=== PATIENT | male | born 1950 | race Two or more races ===

== ENCOUNTER 2018-02-17 02:51 | Inpatient (IN) | payer MEDICARE, OTHER ==
[2018-02-17 03:28] LABS: HEMATOCRIT 27.5 % (42.0-52.0); HEMOGLOBIN 8.7 g/dl (14.0-18.0); MEAN CORPUSCULAR HEMOGLOBIN 34.8 pg (29.0-33.0); MEAN CORPUSCULAR HGB CONC 31.6 g/dl (32.0-37.0); MEAN PLATELET VOLUME 11.6 fl (7.4-10.4); PLATELET COUNT 103 10^3/UL (140-415); POSITIVE DIFF @See below
[2018-02-17 03:28] LABS: WHITE BLOOD COUNT 11.4 10^3/ul (4.8-10.8)
[2018-02-17 03:30] LABS: ADD MAN DIFF? YES
[2018-02-17 03:43] LABS: AMMONIA 89 umol/l (9-30)
[2018-02-17 03:43] LABS: INR 1.81; PROTIME 21.4 Sec (11.9-14.9); PT RATIO 1.7
[2018-02-17 03:44] LABS: PARTIAL THROMBOPLASTIN TIME 45.2 Sec (25.0-35.0)
[2018-02-17 03:45] LABS: ALANINE AMINOTRANSFERASE 25 IU/L (13-69); ALBUMIN 2.3 g/dl (3.3-4.9); ALKALINE PHOSPHATASE 102 IU/L (42-121); ANION GAP 15 (8-16); ASPARTATE AMINO TRANSFERASE 32 IU/L (15-46); BILIRUBIN,INDIRECT 3.6 mg/dl (0-1.1); BILIRUBIN,TOTAL 3.6 mg/dl (0.2-1.3); BLOOD UREA NITROGEN 34 mg/dl (7-20); CARBON DIOXIDE 18 mmol/L (21-31); CHLORIDE 112 mmol/L (97-110); CREATININE 1.09 mg/dl (0.61-1.24); GLUCOSE 146 mg/dl (70-220); MAGNESIUM 1.9 mg/dl (1.7-2.5); SODIUM 140 mmol/L (135-144); TOTAL PROTEIN 6.9 g/dl (6.1-8.1)
[2018-02-17 03:49] LABS: ETHANOL < 10.0 mg/dl
[2018-02-17 03:51] LABS: LACTIC ACID 6.5 mmol/L (0.5-2.0)
[2018-02-17 03:55] LABS: TROPONIN-I 0.024 ng/ml (0.00-0.12)
[2018-02-17] MEDS: ACETAMINOPHEN 650 MG SUPP PR (04:22)
[2018-02-17] MEDS: SOD CHLORIDE 0.9% IV (04:23)
[2018-02-17 04:29] LABS: ANISOCYTOSIS 1+ (0-0); BAND NEUTROPHILS #M 1.3 10^3/ul (0.0-0.6); BAND NEUTROPHILS % (M) 12 % (0-4); LYMPHOCYTES #M 2.1 10^3/ul (0.8-2.9); LYMPHOCYTES % (M) 19 % (15-51); PLATELET ESTIMATE NORMAL; POIKILOCYTOSIS 3+ (0-0); POLYCHROMASIA 3+ (0-0); REACTIVE LYMPHOCYTES #M 0.1 10^3/ul (0.0-0.0); REACTIVE LYMPHOCYTES% (M) 1 % (0-0); SEG NEUT #M 7.9 10^3/ul (1.6-7.5); SEGMENTED NEUTROPHILS (M) % 68 % (39-77); SMUDGE%M 9 % (0-0)
[2018-02-17] MEDS: VANCOMYCIN 1 GM (PMX) 250 ML IVPB (04:41)
[2018-02-17] MEDS: PIPER-TAZO 3.375 GM IV (PMX) 100 ML IVPB ×3 (04:46→21:09)
[2018-02-17] MEDS: LEVOFLOXACIN 750MG/D5W (PMX) 150 ML IVPB (05:19)
[2018-02-17] MEDS ORDERED: NACL 0.9% 3 ML SYG IV (05:30)
[2018-02-17] MEDS ORDERED: VANCOMYCIN IV PER PHARMACY XX (05:30)
[2018-02-17] MEDS ORDERED: AMIKACIN IV PER PHARMACY XX (05:30)
[2018-02-17 05:40] LABS: URINE BLOOD (Dip) POC 3+ (NEGATIVE); URINE GLUCOSE (Dip) POC Negative (NEGATIVE); URINE KETONES (Dip) POC Negative (NEGATIVE); URINE LEUKOCYTE EST (Dip) POC 3+ (NEGATIVE); URINE NITRITE (Dip) POC Negative (NEGATIVE); URINE TOTAL PROTEIN POC 3+ (NEGATIVE)
[2018-02-17 06:20] LABS: LACTIC ACID 3.6 mmol/L (0.5-2.0)
[2018-02-17] MEDS: LACTULOSE 30ML CUP PO ×3 (06:33→21:34)
[2018-02-17] MEDS: VANCOMYCIN 1 GM in 250 ML IVPB (06:48)
[2018-02-17 08:23] LABS: LACTIC ACID 3.3 mmol/L (0.5-2.0)
[2018-02-17 08:28] LABS: AADO2 Arterial 493.3 mmHg (7.0-24.0); Arterial Base Excess -7.6 mmol/L (-3.0-3); Arterial Blood Gas Oxygen Sat 99.1 mmHG (95.0-98.0); Arterial Fraction of Oxyhgb 97.7 % (93.0-99.0); Arterial HCO3 16.6 mmol/L (22.0-26.0); Arterial MetHb 0.4 % (0.0-1.5); Arterial Total Hemglobin 9.2 g/dl (12.0-18.0); Arterial pCO2 29.1 mmhg (35-45); MODE MASK - NRB; Site Right Brachial
[2018-02-17 08:39] LABS: Arterial Blood Gas Oxygen Sat 98.2 mmHG (95.0-98.0); Arterial COHb 1.2 % (0.0-3.0); Arterial Fraction of Oxyhgb 96.5 % (93.0-99.0); Arterial HCO3 15.7 mmol/L (22.0-26.0); Arterial MetHb 0.5 % (0.0-1.5); Arterial Total Hemglobin 7.1 g/dl (12.0-18.0); Arterial pCO2 25.3 mmhg (35-45); MODE HFNC; Site LB
[2018-02-17] MEDS: INSULIN GLARGINE [LANtus] 3 ML PEN SC (08:42)
[2018-02-17] MEDS: INSULIN ASPART [NOVOLOG] 3 ML PEN SC ×4 (09:23→21:14)
[2018-02-17] MEDS: ENOXAPARIN 30 MG/0.3 ML SYG SC (09:26)
[2018-02-17] MEDS: RIFAXIMIN 550 MG TAB PO ×2 (09:26→21:49)
[2018-02-17] MEDS: AMIKACIN 1,000 MG in SOD CHLORIDE 0.9% 100 ML IVPB (09:26)
[2018-02-17] MEDS ORDERED: GLUCOSE GEL 15 GRAM TUBE BUCCAL (15:00)
[2018-02-17] MEDS ORDERED: GLUCAGON 1 MG INJ IM (15:00)
[2018-02-17] MEDS ORDERED: GLUCOSE GEL 15 GRAM TUBE PO ×2 (15:00)
[2018-02-17] MEDS ORDERED: DEXTROSE 50% 50 ML SYRINGE IV ×2 (15:00)
[2018-02-17] MEDS: VANCOMYCIN 1.5 GM in SOD CHLORIDE 0.9% 250 ML IVPB (17:55)
[2018-02-17 22:51] LABS: AMIKACIN RANDOM 12.9 mg/L
[2018-02-18] MEDS ORDERED: traMADol 50 MG TAB PO (00:30)
[2018-02-18] MEDS: ALBUTEROL 0.083% (NEB) 2.5 MG/3 ML AMP HHN (00:45)
[2018-02-18] MEDS ORDERED: ALBUTEROL 0.083% (NEB) 2.5 MG/3 ML AMP HHN (01:00)
[2018-02-18] MEDS: PIPER-TAZO 3.375 GM IV (PMX) 100 ML IVPB ×5 (01:24→18:00)
[2018-02-18] MEDS: ACCU-CHEK XX (02:11)
[2018-02-18] MEDS: VANCOMYCIN 1.5 GM in SOD CHLORIDE 0.9% 250 ML IVPB ×2 (05:18→21:36)
[2018-02-18] MEDS: LACTULOSE 30ML CUP PO ×3 (06:00→21:37)
[2018-02-18 06:19] LABS: ADD MAN DIFF? NO
[2018-02-18 06:23] LABS: WHITE BLOOD COUNT 5.7 10^3/ul (4.8-10.8)
[2018-02-18 06:23] LABS: ABNORMAL IP MESSAGE 1; BASOPHILS % 0.2 % (0.0-2.0); EOSINOPHILS # 0.1 10^3/ul (0.0-0.5); EOSINOPHILS % 0.9 % (0.0-7.0); HEMATOCRIT 21.3 % (42.0-52.0); LYMPHOCYTES # 1.2 10^3/ul (0.8-2.9); LYMPHOCYTES % 21.5 % (15.0-51.0); MEAN CORPUSCULAR HEMOGLOBIN 34.9 pg (29.0-33.0); MEAN CORPUSCULAR HGB CONC 31.9 g/dl (32.0-37.0); MEAN CORPUSCULAR VOLUME 109.2 fl (82.0-101.0); MEAN PLATELET VOLUME 12.1 fl (7.4-10.4); MONOCYTE # 0.3 10^3/ul (0.3-0.9); MONOCYTES % 5.9 % (0.0-11.0); NEUTROPHIL # 4.1 10^3/ul (1.6-7.5); NEUTROPHILS % 71.3 % (39.0-77.0); PLATELET COUNT 60 10^3/UL (140-415); POSITIVE DIFF @See below; RED BLOOD COUNT 1.95 10^6/ul (4.70-6.10); RED CELL DISTRIBUTION WIDTH 17.4 % (11.5-14.5)
[2018-02-18 06:44] LABS: HEMOGLOBIN 6.8 g/dl (14.0-18.0)
[2018-02-18 06:50] LABS: ADD UMIC YES; UR ASCORBIC ACID NEGATIVE (NEGATIVE); UR BACTERIA FEW /HPF (NONE SEEN); UR BILIRUBIN (Dip) NEGATIVE (NEGATIVE); UR BLOOD (Dip) 3+ mg/dL (NEGATIVE); UR CLARITY SLIGHTLY CLOUDY (CLEAR); UR COLOR YELLOW (YELLOW); UR GLUCOSE (Dip) 1+ mg/dL (NEGATIVE); UR KETONES (Dip) NEGATIVE (NEGATIVE); UR LEUKOCYTE ESTERASE (Dip) 3+ Leu/ul (NEGATIVE); UR MUCUS FEW /HPF (NONE SEEN); UR NITRITE (Dip) NEGATIVE (NEGATIVE); UR RBC 141 /HPF (0-5); UR SPECIFIC GRAVITY (Dip) 1.017 (1.003-1.030); UR TOTAL PROTEIN (Dip) 2+ mg/dl (NEGATIVE); UR UROBILINOGEN (Dip) NEGATIVE (NEGATIVE); UR WBC 119 /HPF (0-5)
[2018-02-18 06:52] LABS: ALANINE AMINOTRANSFERASE 32 IU/L (13-69); ALBUMIN 1.7 g/dl (3.3-4.9); ALBUMIN/GLOBULIN RATIO 0.48; ALKALINE PHOSPHATASE 70 IU/L (42-121); ANION GAP 11 (8-16); ASPARTATE AMINO TRANSFERASE 34 IU/L (15-46); BILIRUBIN,INDIRECT 2.9 mg/dl (0-1.1); BLOOD UREA NITROGEN 42 mg/dl (7-20); CALCIUM 7.4 mg/dl (8.4-10.2); CARBON DIOXIDE 17 mmol/L (21-31); CHLORIDE 115 mmol/L (97-110); CREATININE 1.38 mg/dl (0.61-1.24); GLUCOSE 143 mg/dl (70-220); POTASSIUM 4.6 mmol/L (3.5-5.1); SODIUM 138 mmol/L (135-144); TOTAL PROTEIN 5.2 g/dl (6.1-8.1)
[2018-02-18 07:00] LABS: OPIATES Negative (NEGATIVE)
[2018-02-18 07:09] LABS: AMPHETAMINE/METHAMPHETAMINE Negative (NEGATIVE); BARBITURATES Negative (NEGATIVE); BENZODIAZEPINES Negative (NEGATIVE); CANNABINOIDS Negative (NEGATIVE); COCAINE Negative (NEGATIVE)
[2018-02-18] MEDS: RIFAXIMIN 550 MG TAB PO ×2 (08:29→21:37)
[2018-02-18] MEDS: ENOXAPARIN 30 MG/0.3 ML SYG SC (08:32)
[2018-02-18] MEDS: INSULIN ASPART [NOVOLOG] 3 ML PEN SC ×4 (08:33→21:00)
[2018-02-18] MEDS: INSULIN GLARGINE [LANtus] 3 ML PEN SC (08:34)
[2018-02-18] MEDS: AMIKACIN 1,000 MG in SOD CHLORIDE 0.9% 100 ML IVPB ×2 (09:00→21:40)
[2018-02-18] MEDS: ALBUMIN HUMAN 25% 100 ML IV (14:55)
[2018-02-18 16:09] LABS: IMMEDIATE SPIN CROSSMATCH 1 1
[2018-02-19] MEDS: ACCU-CHEK XX (01:10)
[2018-02-19] MEDS: ALBUMIN HUMAN 25% 100 ML IV ×2 (02:35→06:01)
[2018-02-19] MEDS: PIPER-TAZO 3.375 GM IV (PMX) 100 ML IVPB ×4 (02:35→17:29)
[2018-02-19] MEDS: LACTULOSE 30ML CUP PO ×3 (06:41→21:03)
[2018-02-19] MEDS: VANCOMYCIN 1.5 GM in SOD CHLORIDE 0.9% 250 ML IVPB (07:56)
[2018-02-19] MEDS: INSULIN GLARGINE [LANtus] 3 ML PEN SC (08:00)
[2018-02-19] MEDS: INSULIN ASPART [NOVOLOG] 3 ML PEN SC ×4 (08:00→21:00)
[2018-02-19 08:09] LABS: CREATININE 1.34 mg/dl (0.61-1.24)
[2018-02-19 08:09] LABS: BLOOD UREA NITROGEN 40 mg/dl (7-20)
[2018-02-19 08:30] LABS: VANCOMYCIN,TROUGH 22.6 ug/ml (10.0-20.0)
[2018-02-19] MEDS: RIFAXIMIN 550 MG TAB PO ×2 (08:36→21:03)
[2018-02-19] MEDS: ENOXAPARIN 30 MG/0.3 ML SYG SC (08:38)
[2018-02-19] MEDS: FUROSEMIDE 20 MG INJ IV (17:42)
[2018-02-19] MEDS: SPIRONOLACTONE 25 MG TAB PO (21:03)
[2018-02-20] MEDS: VANCOMYCIN 1.5 GM in SOD CHLORIDE 0.9% 250 ML IVPB
[2018-02-20] MEDS: ACCU-CHEK XX (01:31)
[2018-02-20] MEDS: PIPER-TAZO 3.375 GM IV (PMX) 100 ML IVPB ×4 (06:08→17:18)
[2018-02-20] MEDS: FUROSEMIDE 20 MG INJ IV ×2 (06:08→17:22)
[2018-02-20] MEDS: LEVOTHYROXINE 50 MCG TAB PO (06:09)
[2018-02-20] MEDS: LACTULOSE 30ML CUP PO ×3 (06:09→20:44)
[2018-02-20] MEDS: INSULIN ASPART [NOVOLOG] 3 ML PEN SC ×4 (07:47→20:43)
[2018-02-20] MEDS: INSULIN GLARGINE [LANtus] 3 ML PEN SC (07:47)
[2018-02-20 08:17] LABS: ADD MAN DIFF? NO
[2018-02-20 08:23] LABS: ABNORMAL IP MESSAGE 1; BASOPHILS % 0.3 % (0.0-2.0); EOSINOPHILS # 0.3 10^3/ul (0.0-0.5); EOSINOPHILS % 4.4 % (0.0-7.0); HEMOGLOBIN 8.3 g/dl (14.0-18.0); LYMPHOCYTES # 1.8 10^3/ul (0.8-2.9); LYMPHOCYTES % 29.5 % (15.0-51.0); MEAN CORPUSCULAR HEMOGLOBIN 34.4 pg (29.0-33.0); MEAN CORPUSCULAR HGB CONC 31.9 g/dl (32.0-37.0); MEAN CORPUSCULAR VOLUME 107.9 fl (82.0-101.0); MEAN PLATELET VOLUME 11.6 fl (7.4-10.4); MONOCYTE # 0.3 10^3/ul (0.3-0.9); MONOCYTES % 5.6 % (0.0-11.0); NEUTROPHIL # 3.6 10^3/ul (1.6-7.5); NEUTROPHILS % 59.9 % (39.0-77.0); PLATELET COUNT 65 10^3/UL (140-415); POSITIVE DIFF @See below; RED BLOOD COUNT 2.41 10^6/ul (4.70-6.10); RED CELL DISTRIBUTION WIDTH 19.3 % (11.5-14.5)
[2018-02-20 08:23] LABS: WHITE BLOOD COUNT 5.9 10^3/ul (4.8-10.8)
[2018-02-20 08:43] LABS: CREATINE KINASE 42 IU/L (23-200); INR 1.98; PT RATIO 1.8
[2018-02-20 08:45] LABS: ALANINE AMINOTRANSFERASE 30 IU/L (13-69); ALBUMIN 2.1 g/dl (3.3-4.9); ALKALINE PHOSPHATASE 70 IU/L (42-121); ANION GAP 11 (8-16); ASPARTATE AMINO TRANSFERASE 29 IU/L (15-46); BILIRUBIN,INDIRECT 2.4 mg/dl (0-1.1); BILIRUBIN,TOTAL 2.4 mg/dl (0.2-1.3); BLOOD UREA NITROGEN 38 mg/dl (7-20); CALCIUM 8.2 mg/dl (8.4-10.2); CARBON DIOXIDE 20 mmol/L (21-31); CHLORIDE 115 mmol/L (97-110); CHOL/HDL RATIO 2.8 RATIO; CHOLESTEROL 52 mg/dl (100-200); CREATININE 1.22 mg/dl (0.61-1.24); GLUCOSE 129 mg/dl (70-220); HDL CHOLESTEROL 18 mg/dl (31-75); LDL CHOLESTEROL,CALCULATED 21 mg/dl; MAGNESIUM 1.6 mg/dl (1.7-2.5); SODIUM 142 mmol/L (135-144); TOTAL PROTEIN 5.6 g/dl (6.1-8.1); TRIGLYCERIDES 63 mg/dl (0-149)
[2018-02-20] MEDS: SPIRONOLACTONE 25 MG TAB PO (08:48)
[2018-02-20] MEDS: RIFAXIMIN 550 MG TAB PO ×2 (08:49→20:44)
[2018-02-20 08:52] LABS: CK INDEX 9.6
[2018-02-20 08:54] LABS: B-TYPE NATRIURETIC PEPTIDE 21400 PG/ML (0-125)
[2018-02-20 08:55] LABS: CK-MB 4.03 ng/ml (0.0-2.4)
[2018-02-20] MEDS: AMIKACIN 1,000 MG in SOD CHLORIDE 0.9% 100 ML IVPB (09:03)
[2018-02-20 09:13] LABS: TROPONIN-I 0.097 ng/ml (0.00-0.12)
[2018-02-20 09:56] LABS: ADD UMIC NO; UR ASCORBIC ACID NEGATIVE (NEGATIVE); UR BILIRUBIN (Dip) NEGATIVE (NEGATIVE); UR BLOOD (Dip) NEGATIVE (NEGATIVE); UR CLARITY CLEAR (CLEAR); UR COLOR STRAW (YELLOW); UR GLUCOSE (Dip) NEGATIVE (NEGATIVE); UR KETONES (Dip) NEGATIVE (NEGATIVE); UR LEUKOCYTE ESTERASE (Dip) NEGATIVE Leu/ul (NEGATIVE); UR NITRITE (Dip) NEGATIVE (NEGATIVE); UR SPECIFIC GRAVITY (Dip) 1.006 (1.003-1.030); UR TOTAL PROTEIN (Dip) NEGATIVE (NEGATIVE); UR UROBILINOGEN (Dip) NEGATIVE (NEGATIVE)
[2018-02-20] MEDS: MAGNESIUM SULFATE 2 GM/50 ML 50 ML IVPB (10:36)
[2018-02-20 11:03] LABS: SODIUM,URINE RANDOM 127 mmol/L (30-90)
[2018-02-20 11:54] LABS: CREATININE,URINE RANDOM < 12.40 mg/dl (20-370)
[2018-02-20 12:52] LABS: DIGOXIN < 0.4 ng/ml (1.0-2.0)
[2018-02-20] MEDS: PHYTONADIONE 10 MG in DEXTROSE 5% 50 ML IVPB (13:49)
[2018-02-20 17:56] LABS: AMIKACIN TROUGH 8.4 mg/L (4.0-8.0)
[2018-02-21] MEDS: VANCOMYCIN 1.5 GM in SOD CHLORIDE 0.9% 250 ML IVPB (00:41)
[2018-02-21] MEDS: PIPER-TAZO 3.375 GM IV (PMX) 100 ML IVPB ×3 (00:41→12:01)
[2018-02-21] MEDS: ACCU-CHEK XX (02:00)
[2018-02-21] MEDS: LACTULOSE 30ML CUP PO ×4 (06:04→21:44)
[2018-02-21] MEDS: LEVOTHYROXINE 50 MCG TAB PO (06:04)
[2018-02-21] MEDS: FUROSEMIDE 20 MG INJ IV ×2 (06:04→16:57)
[2018-02-21] MEDS: INSULIN ASPART [NOVOLOG] 3 ML PEN SC ×4 (08:00→20:55)
[2018-02-21] MEDS: RIFAXIMIN 550 MG TAB PO ×2 (08:41→21:00)
[2018-02-21] MEDS: SPIRONOLACTONE 25 MG TAB PO (08:41)
[2018-02-21] MEDS: INSULIN GLARGINE [LANtus] 3 ML PEN SC (08:48)
[2018-02-21 14:28] LABS: CREATININE, RANDOM URINE 13 mg/dL (20-370); MICROALBUMIN 1.7 mg/dL; MICROALBUMIN/CREATININE RATIO 131 (<30)
[2018-02-21] MEDS: PHYTONADIONE 10 MG in DEXTROSE 5% 50 ML IVPB (15:07)
[2018-02-21 15:23] LABS: ADD MAN DIFF? NO
[2018-02-21 15:45] LABS: ANION GAP 12 (8-16); BLOOD UREA NITROGEN 35 mg/dl (7-20); CALCIUM 9.2 mg/dl (8.4-10.2); CARBON DIOXIDE 21 mmol/L (21-31); CHLORIDE 110 mmol/L (97-110); CREATININE 1.26 mg/dl (0.61-1.24); GLUCOSE 130 mg/dl (70-220); MAGNESIUM 1.4 mg/dl (1.7-2.5); PHOSPHORUS 4.2 mg/dl (2.5-4.9); POTASSIUM 3.9 mmol/L (3.5-5.1); SODIUM 139 mmol/L (135-144)
[2018-02-21 17:23] LABS: ABNORMAL IP MESSAGE 1; BASOPHILS % 0.2 % (0.0-2.0); EOSINOPHILS # 0.3 10^3/ul (0.0-0.5); EOSINOPHILS % 5.4 % (0.0-7.0); HEMATOCRIT 25.6 % (42.0-52.0); HEMOGLOBIN 8.1 g/dl (14.0-18.0); LYMPHOCYTES # 1.3 10^3/ul (0.8-2.9); LYMPHOCYTES % 27.8 % (15.0-51.0); MEAN CORPUSCULAR HEMOGLOBIN 33.3 pg (29.0-33.0); MEAN CORPUSCULAR HGB CONC 31.6 g/dl (32.0-37.0); MEAN CORPUSCULAR VOLUME 105.3 fl (82.0-101.0); MEAN PLATELET VOLUME 12.2 fl (7.4-10.4); MONOCYTE # 0.3 10^3/ul (0.3-0.9); MONOCYTES % 6.5 % (0.0-11.0); NEUTROPHIL # 2.9 10^3/ul (1.6-7.5); NEUTROPHILS % 59.5 % (39.0-77.0); PLATELET COUNT 56 10^3/UL (140-415); POSITIVE DIFF @See below; RED BLOOD COUNT 2.43 10^6/ul (4.70-6.10); RED CELL DISTRIBUTION WIDTH 19.5 % (11.5-14.5)
[2018-02-21 17:23] LABS: WHITE BLOOD COUNT 4.8 10^3/ul (4.8-10.8)
[2018-02-21] MEDS: MAGNESIUM SULFATE 4 GM/100 ML 100 ML IVPB (17:58)
[2018-02-21] MEDS: CEFEPIME 1GM/50 ML (PMX) 50 ML IVPB (21:29)
[2018-02-22] MEDS: ACCU-CHEK XX (02:00)
[2018-02-22] MEDS: FUROSEMIDE 20 MG INJ IV (05:49)
[2018-02-22] MEDS: LEVOTHYROXINE 50 MCG TAB PO (05:50)
[2018-02-22] MEDS: LACTULOSE 30ML CUP PO ×2 (05:50→13:59)
[2018-02-22] MEDS: INSULIN ASPART [NOVOLOG] 3 ML PEN SC ×2 (08:00→11:58)
[2018-02-22] MEDS: INSULIN GLARGINE [LANtus] 3 ML PEN SC (08:24)
[2018-02-22] MEDS: CEFEPIME 1GM/50 ML (PMX) 50 ML IVPB (08:24)
[2018-02-22] MEDS: SPIRONOLACTONE 25 MG TAB PO (08:24)
[2018-02-22 08:43] LABS: ADD MAN DIFF? NO
[2018-02-22 08:50] LABS: ABNORMAL IP MESSAGE 1; BASOPHILS % 0.4 % (0.0-2.0); EOSINOPHILS # 0.2 10^3/ul (0.0-0.5); EOSINOPHILS % 4.7 % (0.0-7.0); HEMATOCRIT 25.7 % (42.0-52.0); HEMOGLOBIN 8.3 g/dl (14.0-18.0); LYMPHOCYTES # 1.6 10^3/ul (0.8-2.9); LYMPHOCYTES % 30.5 % (15.0-51.0); MEAN CORPUSCULAR HEMOGLOBIN 33.9 pg (29.0-33.0); MEAN CORPUSCULAR HGB CONC 32.3 g/dl (32.0-37.0); MEAN CORPUSCULAR VOLUME 104.9 fl (82.0-101.0); MONOCYTE # 0.4 10^3/ul (0.3-0.9); MONOCYTES % 8.1 % (0.0-11.0); NEUTROPHIL # 2.9 10^3/ul (1.6-7.5); NEUTROPHILS % 55.9 % (39.0-77.0); PLATELET COUNT 51 10^3/UL (140-415); POSITIVE DIFF @See below; RED BLOOD COUNT 2.45 10^6/ul (4.70-6.10); RED CELL DISTRIBUTION WIDTH 19.4 % (11.5-14.5)
[2018-02-22 08:50] LABS: WHITE BLOOD COUNT 5.1 10^3/ul (4.8-10.8)
[2018-02-22] MEDS: RIFAXIMIN 550 MG TAB PO ×2 (09:00→11:58)
[2018-02-22 09:24] LABS: ANION GAP 12 (8-16); BLOOD UREA NITROGEN 34 mg/dl (7-20); CALCIUM 8.1 mg/dl (8.4-10.2); CARBON DIOXIDE 22 mmol/L (21-31); CHLORIDE 109 mmol/L (97-110); CREATININE 1.21 mg/dl (0.61-1.24); GLUCOSE 108 mg/dl (70-220); MAGNESIUM 1.9 mg/dl (1.7-2.5); PHOSPHORUS 4.3 mg/dl (2.5-4.9); POTASSIUM 3.8 mmol/L (3.5-5.1); SODIUM 139 mmol/L (135-144)
[2018-02-22] MEDS: LISINOPRIL 5 MG TAB PO (11:53)
== END 2018-02-22 14:20 | disposition home or self-care (01) | DRG 871 ==
LOC: E/R 02:51 → MS4 04:27
PROC: 30233N1 Transfusion of Nonautologous Red Blood Cells into Peripheral Vein, Percutaneous Approach (ICD-10-PCS; principal; 2018-02-18)
DX: A41.51 Sepsis due to Escherichia coli [E. coli] (principal); J96.01 Acute respiratory failure with hypoxia; G93.49 Other encephalopathy; I50.43 Acute on chronic combined systolic (congestive) and diastolic (congestive) heart failure; J18.9 Pneumonia, unspecified organism; N17.9 Acute kidney failure, unspecified; I13.0 Hypertensive heart and chronic kidney disease with heart failure and stage 1 through stage 4 chronic kidney disease, or unspecified chronic kidney disease; J94.8 Other specified pleural conditions; E46 Unspecified protein-calorie malnutrition; N39.0 Urinary tract infection, site not specified; Z68.28 Body mass index [BMI] 28.0-28.9, adult; D53.9 Nutritional anemia, unspecified; Z96.652 Presence of left artificial knee joint; I25.5 Ischemic cardiomyopathy; I25.10 Atherosclerotic heart disease of native coronary artery without angina pectoris; Z95.5 Presence of coronary angioplasty implant and graft; I25.2 Old myocardial infarction; E83.89 Other disorders of mineral metabolism; N18.9 Chronic kidney disease, unspecified; K72.90 Hepatic failure, unspecified without coma; K70.30 Alcoholic cirrhosis of liver without ascites; Z66 Do not resuscitate; I44.7 Left bundle-branch block, unspecified; D69.6 Thrombocytopenia, unspecified; E03.9 Hypothyroidism, unspecified; Z87.440 Personal history of urinary (tract) infections; R65.20 Severe sepsis without septic shock; E11.22 Type 2 diabetes mellitus with diabetic chronic kidney disease; F10.20 Alcohol dependence, uncomplicated
CPT/HCPCS: 36415; 36430; 36600; 70450; 71045; 76604; 76705; 76775; 80048; 80053; 80061; 80150; 80162; 80202; 80306; 80307; 81001; 81003; 82043; 82140; 82550; 82553; 82565; 82803; 82962; 83605; 83735; 83880; 84100; 84155; 84300; 84439; 84443; 84484; 84520; 85025; 85610; 85730; 86850; 86900; 86901; 86920; 87040; 87086; 93005; 93306; 94664; 96372; 96374; 96375; 97116; 97163; 99291-25